=== PATIENT | male | born 1940 ===

== ENCOUNTER 2025-05-20 11:36 | Emergency (ER) | payer SELFPAY ==
[2025-05-20 14:35] LABS: #Basophils Less than 0.03 10x3/uL (0.0-0.2); #Eosinophils 0.20 10x3/uL (0.0-0.5); #Monocytes 0.95 10x3/uL (0.0-1.1); #Neutrophils 10.11 10x3/uL (1.5-8.4); %Basophils 0.1 % (0.0-2.0); %Eosinophils 1.4 % (0.0-6.0); %Lymphocytes 22.5 % (18.0-47.0); %Monocytes 6.5 % (0.0-10.0); %Neutrophils 69.3 % (40.0-75.0); Hematocrit 45.3 % (38.8-50.0); Hemoglobin 15.4 g/dL (13.5-17.5); Mean Corpuscular Hemoglobin 30.7 pg (27.0-33.0); Mean Corpuscular Volume 90.4 fL (81.2-95.1); Platelet Count 157 10x3/uL (150-450); Red Blood Cell (RBC) Count 5.01 10x6/uL (4.32-5.72); White Blood Cell (WBC) Count 14.60 10x3/uL (3.5-10.5)
[2025-05-20 14:44] LABS: ALT (SGPT) 34 U/L (Less than 45); AST (SGOT) 26 U/L (11-34); Albumin 3.8 g/dL (3.1-4.5); Alkaline Phosphatase 80 U/L (40-110); Anion Gap 15 mmol/L (10-20); BUN (Urea Nitrogen) 24 mg/dL (8.4-25.7); Bilirubin, Total 1.0 mg/dL (0.3-1.2); Calc. Creatinine Clearance 0 mL/min (70-130); Calcium 10.0 mg/dL (7.8-10.44); Carbon Dioxide 26 mmol/L (23-31); Chloride 100 mmol/L (98-107); Globulin 3.5 g/dL (2.4-3.5); Potassium 4.6 mmol/L (3.5-5.1); Sodium 136 mmol/L (136-145)
[2025-05-20 14:47] LABS: Glucose 421 mg/dL (83-110)
[2025-05-20] MEDS ORDERED: Ketorolac Tromethamine 30 MG (1 mL) VIAL ONE (16:29)
== END 2025-05-20 17:08 | disposition home or self-care (01) ==
LOC: CSHERS 11:36
DX: K11.20 Sialoadenitis, unspecified (principal); E11.65 Type 2 diabetes mellitus with hyperglycemia; I10 Essential (primary) hypertension
CPT/HCPCS: 36416; 70491; 80053; 85025; 96372; J1885